=== PATIENT | female | born 1980 | race Caucasian/White ===

== ENCOUNTER 2023-08-05 09:12 | Emergency (ER) | payer BC ==
[~2023-08-05] VITALS: Ht 172.7 cm; Wt 134.5 kg
[2023-08-05 09:25] VITALS: PULSE 94; RESP 18; TEMP 98.4; O2SAT 95
[2023-08-05 09:37] LABS: Basophils # (auto) 0.1 10 ^3/uL (0-0.2); Basophils % (auto) 0.6 % (0.0-2.0); Eosinophils # (auto) 0.1 10 ^3/uL (0-0.8); Eosinophils % (auto) 0.5 % (0.0-7.0); Hematocrit 48.4 % (36.0-46.0); Hemoglobin 16.2 g/dL (12.2-16.2); Lymphocytes # (auto) 2.9 10 ^3/uL (0.4-5.4); Lymphocytes % (auto) 26.7 % (10.0-50.0); Mean Corpuscular Hemoglobin 28.3 pg (28.0-32.0); Mean Corpuscular Hgb Conc. 33.4 g/dL (32.0-36.0); Mean Corpuscular Volume 84.8 fL (80.0-100.0); Monocytes # (auto) 0.7 10 ^3/uL (0-1.3); Monocytes % (auto) 6.5 % (0.0-12.0); Neutrophils # (auto) 7.1 10 ^3/uL (1.6-8.6); Neutrophils % (auto) 65.7 % (37.0-80.0); Nucleated Red Blood Cells % 0.1 %; Red Blood Cells 5.71 10^6/uL (4.0-5.20); Red Cell Distribution Width 13.4 % (11.8-14.3); White Blood Cell 10.9 10^3/uL (4.4-10.8)
[2023-08-05] MEDS ORDERED: MECLIZINE HCL 25 MG TAB PO ONE (09:45)
[2023-08-05 10:04] LABS: Alanine Aminotransferase 64 U/L (7-40); Albumin 4.9 g/dL (3.2-4.8); Alkaline Phosphatase 67 U/L (46-116); Anion Gap 9 (5-15); Aspartate Aminotransferase 40 U/L (13-40); BUN/Creatinine Ratio 13.3 (10.0-20.0); Blood Urea Nitrogen 13 mg/dL (9-23); Calcium 10.2 mg/dL (8.5-10.1); Carbon Dioxide 26 mmol/L (20-30); Chloride 105 mmol/L (98-107); Glucose 147 mg/dL (74-106); Potassium 3.8 mmol/L (3.5-5.1); Sodium 140 mmol/L (136-145)
[2023-08-05 10:05] LABS: Total Protein 7.9 g/dL (5.7-8.2)
[2023-08-05 10:13] LABS: INR 1.03 (0.9-1.15); Partial Thromboplastin Time 29.6 SEC (24.5-34.5); Prothrombin Time 10.8 sec (9.3-11.8)
[2023-08-05] MEDS ORDERED: MECL1TAB42 PO (10:42)
[2023-08-05] MEDS ORDERED: SODIUM CHLORIDE 0.9% 1,000 ML IV ONE (10:45)
[2023-08-05 11:10] LABS: Magnesium 1.8 mg/dL (1.6-2.6)
[2023-08-05 13:00] VITALS: BP 114/74; PULSE 83; RESP 24; O2SAT 96
== END 2023-08-05 13:05 | disposition home or self-care (01) ==
LOC: EEVIPCON 09:12 → ER 09:12
DX: R42 Dizziness and giddiness (principal)
CPT/HCPCS: 36415; 70450; 71045; 80053; 83735; 83880; 84484; 85025; 85610; 85730; 93005; 96360; 99285; J7030; J8597

== ENCOUNTER → 2023-08-11 | Outpatient (CLI) | payer BC ==
[~2023-08-11] MED LIST: MECL1TAB42 PO
[2023-08-11 09:11] LABS: Triglycerides 119 mg/dL (< 150)
[2023-08-11 09:12] LABS: Cholesterol 137 mg/dL (< 200); HDL Cholesterol 34 mg/dL (40-59); LDL Cholesterol 82 mg/dL (< 100)
== END | disposition home or self-care (01) ==
LOC: LAB 08:20
PROVIDERS: ATTEND Internal Medicine
DX: N94.89 Other specified conditions associated with female genital organs and menstrual cycle (principal); R63.4 Abnormal weight loss
CPT/HCPCS: 36415; 80061; 84439; 84443; 86304